=== PATIENT | female | born 1985 | race Caucasian/White ===

== ENCOUNTER 2018-12-28 05:48 | Day surgery (SDC) | payer BC ==
[2018-12-28] MEDS ORDERED: CEFAZOLIN 2 GM/50 ML (PMX) 50 ML IVPB (06:00)
[2018-12-28] MEDS ORDERED: SOD CHLORIDE 0.9% 1,000 ML IV (06:00)
[2018-12-28 07:19] LABS: ADD MAN DIFF? NO
[2018-12-28] MEDS ORDERED: ONDANSETRON 4 MG INJ (07:19)
[2018-12-28] MEDS ORDERED: FENTAnyl 50 MCG/ML VIAL ×2 (07:19→08:35)
[2018-12-28] MEDS ORDERED: CEFAZOLIN 1 GM INJ (07:19)
[2018-12-28] MEDS ORDERED: MIDAZOLAM 1 MG/ML 2 ML INJ (07:19)
[2018-12-28] MEDS ORDERED: ROCURONIUM 50 MG INJ (07:19)
[2018-12-28] MEDS ORDERED: PROPOFOL 20 ML (07:19)
[2018-12-28] MEDS ORDERED: NEOSTIGMINE 3 MG/3 ML SYRINGE (07:19)
[2018-12-28] MEDS ORDERED: DEXAMETHASONE 4 MG/ML 5 ML INJ (07:19)
[2018-12-28] MEDS ORDERED: GLYCOPYRROLATE 0.4 MG INJ (07:19)
[2018-12-28 07:22] LABS: WHITE BLOOD COUNT 7.8 10^3/ul (4.8-10.8)
[2018-12-28 07:22] LABS: BASOPHILS % 0.5 % (0.0-2.0); EOSINOPHILS # 0.2 10^3/ul (0.0-0.5); EOSINOPHILS % 2.9 % (0.0-7.0); HEMOGLOBIN 11.3 g/dl (12.0-16.0); LYMPHOCYTES # 2.6 10^3/ul (0.8-2.9); LYMPHOCYTES % 33.5 % (15.0-51.0); MEAN CORPUSCULAR HGB CONC 31.4 g/dl (32.0-37.0); MEAN CORPUSCULAR VOLUME 73.3 fl (82.0-101.0); MEAN PLATELET VOLUME 11.5 fl (7.4-10.4); MONOCYTE # 0.5 10^3/ul (0.3-0.9); MONOCYTES % 6.4 % (0.0-11.0); NEUTROPHIL # 4.4 10^3/ul (1.6-7.5); NEUTROPHILS % 56.4 % (39.0-77.0); PLATELET COUNT 227 10^3/UL (140-415); RED BLOOD COUNT 4.91 10^6/ul (4.20-5.40); RED CELL DISTRIBUTION WIDTH 15.3 % (11.5-14.5)
[2018-12-28] MEDS ORDERED: ROPIVACAINE 0.5 % 30 ML VIAL (07:22)
[2018-12-28] MEDS ORDERED: BUPIVACAINE 0.25% (MPF) 30 ML INJ (07:23)
[2018-12-28 07:43] LABS: PROTIME 12.3 Sec (11.9-14.9)
[2018-12-28 07:44] LABS: PARTIAL THROMBOPLASTIN TIME 33.9 Sec (23.0-35.0)
[2018-12-28 07:52] LABS: ALANINE AMINOTRANSFERASE 25 IU/L (13-69); ALBUMIN 3.8 g/dl (3.3-4.9); ALBUMIN/GLOBULIN RATIO 1.22; ALKALINE PHOSPHATASE 59 IU/L (42-121); ANION GAP 10 (5-13); ASPARTATE AMINO TRANSFERASE 18 IU/L (15-46); BILIRUBIN,INDIRECT 0.2 mg/dl (0-1.1); BILIRUBIN,TOTAL 0.2 mg/dl (0.2-1.3); BLOOD UREA NITROGEN 12 mg/dl (7-20); CARBON DIOXIDE 25 mmol/L (21-31); CHLORIDE 106 mmol/L (97-110); CREATININE 0.53 mg/dl (0.44-1.00); Estimated GFR > 60 mL/min (>60); GLUCOSE 109 mg/dl (70-220); POTASSIUM 3.8 mmol/L (3.5-5.1); SODIUM 141 mmol/L (135-144); TOTAL PROTEIN 6.9 g/dl (6.1-8.1)
[2018-12-28] MEDS ORDERED: TRIMETHOBENZAMIDE 100 MG/ML VIAL IM (08:00)
[2018-12-28] MEDS ORDERED: OXYCODONE/ACETAMINOPHEN (5/325) TAB PO ×2 (08:00)
[2018-12-28] MEDS ORDERED: FENTAnyl 50 MCG/ML VIAL IV ×3 (08:00)
[2018-12-28] MEDS ORDERED: DIPHENHYDRAMINE 50 MG INJ IV (08:00)
[2018-12-28] MEDS ORDERED: LABETALOL HCL 20MG INJ IV (08:00)
[2018-12-28] MEDS ORDERED: HYDROmorphONE 1 MG/5 ML IV SYRINGE IV (08:00)
[2018-12-28] MEDS ORDERED: hydrALAzine 20 MG INJ IV (08:00)
[2018-12-28] MEDS ORDERED: ALBUTEROL 0.083% (NEB) 2.5 MG/3 ML AMP HHN (08:00)
[2018-12-28] MEDS ORDERED: EPHEDrine 25 MG/5 ML SYG IV (08:00)
[2018-12-28] MEDS ORDERED: IPRATROPIUM (NEB) 0.5 MG/2.5 ML AMP HHN (08:00)
[2018-12-28] MEDS ORDERED: MIDAZOLAM 1 MG/ML 2 ML INJ IV (08:00)
[2018-12-28] MEDS ORDERED: SUGAMMADEX SODIUM 200 MG/2 ML VIAL IV (08:25)
[2018-12-28] MEDS ORDERED: FAMOTIDINE 20 MG INJ (08:34)
[2018-12-28] MEDS ORDERED: KETOROLAC 30 MG INJ (08:34)
[2018-12-28] MEDS ORDERED: HYDROCODONE/APAP (5/325) TAB PO (09:00)
[2018-12-28] MEDS: HYDROmorphONE 1 MG/5 ML IV SYRINGE IV ×2 (09:03→09:10)
[2018-12-28] MEDS: MEPERIDINE 25 MG INJ IV (09:04)
[2018-12-28] MEDS: ONDANSETRON 4 MG INJ IV (09:04)
== END 2018-12-28 10:21 | disposition home or self-care (01) ==
LOC: SDS 05:48
DX: K80.10 Calculus of gallbladder with chronic cholecystitis without obstruction (principal); E66.9 Obesity, unspecified; Z68.41 Body mass index [BMI] 40.0-44.9, adult
CPT/HCPCS: 47562; 80053; 85025; 85610; 85730; 88304